=== PATIENT | male | born 1985 | race Two or more races ===

== ENCOUNTER 2017-11-14 11:04 | Emergency (ER) | payer OTHER ==
[2017-11-14 11:23] VITALS: BP 100/85
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
[2017-11-14] MEDS ORDERED: ACETAMINOPHEN 325 MG TABLET PO STA (13:57)
[2017-11-14] MEDS ORDERED: traMADol 50 MG TABLET PO STA (13:57)
[2017-11-14] MEDS ORDERED: METHOCARBAMOL 500 MG TABLET PO STA (13:57)
[2017-11-14] MEDS ORDERED: DEXAMETHASONE 10 MG/ML VIAL PO STA (13:57)
[2017-11-14] MEDS ORDERED: CHERRY SYRUP 10 ML UDC PO ONE (14:02)
== END 2017-11-14 14:15 | disposition home or self-care (01) ==
LOC: ED 11:04
DX: S16.1XXA Strain of muscle, fascia and tendon at neck level, initial encounter (principal); V89.2XXA Person injured in unspecified motor-vehicle accident, traffic, initial encounter; Y92.410 Unspecified street and highway as the place of occurrence of the external cause
CPT/HCPCS: 99283; A9270